=== PATIENT | female | born 1985 | race Two or more races ===

== ENCOUNTER 2020-10-05 19:20 | Emergency (ER) | payer MEDICAID, OTHER ==
[~2020-10-05] VITALS: Ht 165.1 cm; Wt 114.3 kg
[2020-10-05 20:31] LABS: Basophils # (auto) 0 10 ^3/uL (0-0.2); Basophils % (auto) 0.7 % (0.0-2.0); Eosinophils # (auto) 0.1 10 ^3/uL (0-0.8); Eosinophils % (auto) 1.5 % (0.0-7.0); Hematocrit 34.6 % (36.0-46.0); Hemoglobin 11.9 g/dL (12.2-16.2); Lymphocytes # (auto) 1.8 10 ^3/uL (0.4-5.4); Lymphocytes % (auto) 27.9 % (10.0-50.0); Mean Corpuscular Hemoglobin 30.4 pg (28.0-32.0); Mean Corpuscular Hgb Conc. 34.4 g/dL (32.0-36.0); Mean Corpuscular Volume 88.4 fL (80.0-100.0); Monocytes # (auto) 0.3 10 ^3/uL (0-1.3); Monocytes % (auto) 5.4 % (0.0-12.0); Neutrophils # (auto) 4.1 10 ^3/uL (1.6-8.6); Neutrophils % (auto) 64.5 % (37.0-80.0); Platelet Count (auto) 248 10^3/uL (140-450); Red Blood Cells 3.92 10^6/uL (4.0-5.20); Red Cell Distribution Width 13.6 % (11.8-14.3); White Blood Cell 6.3 10^3/uL (4.4-10.8)
[2020-10-05 20:48] LABS: BUN/Creatinine Ratio 17.1; Calcium 8.7 mg/dL (8.5-10.1); Potassium 3.7 mmol/L (3.5-5.1)
[2020-10-05 20:50] LABS: INR 0.96 (0.9-1.15); Partial Thromboplastin Time 26.4 sec (23.0-31.2)
[2020-10-05 20:51] LABS: Bilirubin, Total 0.2 mg/dL (0.2-1.0); Total Protein 7.2 g/dL (6.4-8.2)
[2020-10-05 23:09] VITALS: BP 120/64
[2020-10-05 23:13] LABS: Urine Bacteria NONE SEEN /hpf (None Seen); Urine Blood 3+ /uL (Negative); Urine Specific Gravity 1.016 (1.001-1.035); Urine WBC 2 /hpf (0 - 5)
== END 2020-10-05 23:11 | disposition home or self-care (01) ==
LOC: ER 19:20
DX: O20.8 Other hemorrhage in early pregnancy (principal); Z3A.09 9 weeks gestation of pregnancy
CPT/HCPCS: 36415; 76801; 80053; 81001; 81025; 84702; 85025; 85610; 85730; 86850; 86900; 86901